=== PATIENT | female | born 1960 | race Caucasian/White ===

== ENCOUNTER 2019-02-28 17:13 | Inpatient (IN) | payer MEDICAID ==
[~2019-02-28] VITALS: Ht 170.1 cm; Wt 124.7 kg
[2019-02-28] MEDS ORDERED: LISINOPRIL5 MG PO (17:35)
[2019-02-28] MEDS ORDERED: ATORVASTATIN CA80 M1 PO (17:35)
[2019-02-28] MEDS ORDERED: OMEPRAZOLE MAGN20 MG PO (17:36)
[2019-02-28] MEDS ORDERED: SENNA8.6 MG PO (17:42)
[2019-02-28] MEDS ORDERED: TYLENOL325 M2 PO (17:44)
[2019-02-28] MEDS ORDERED: MIRALAX17 GM PO (17:45)
[2019-02-28] MEDS ORDERED: MELATONIN3 M3 PO (17:45)
[2019-02-28] MEDS ORDERED: TUSSIN COU15 MG/5 ML PO (17:48)
[2019-02-28] MEDS ORDERED: CYCLOBENZAPRINE10 MG PO (17:51)
[2019-02-28] MEDS ORDERED: EC NAPROSYN500 MG PO (17:53)
--- NOTE | 2019-02-28 18:24 | NUR ---
SPOKE WITH CHRISTINE AT [facility]. PT IS ENROUTE TO FACILITY AT THIS TIME. LAURA FRIEDMAN NOTIFIED OF PT TO BE PINK SLIP FOR ADMISSION.
[2019-02-28 19:47] VITALS: BP 136/78
--- NOTE | 2019-02-28 19:47 | NUR ---
A 58, admitted PINKSLIPPED to 3N, under the services of DL DEJESUS with a diagnosis of SCHIZOAFFECTIVE DISORDER. Chief complaint is INCREASED AGITATION, THREATENING STAFF DR AT FACILITY. Patient arrived via stretcher from [facility]. Initial assessment completed. Vital signs taken and recorded. DL DEJESUS notified of admission to the unit. Orders received. See assessment for past medical history, medications and allergies. Patient oriented to unit. [facility]. visitation policy reviewed. Clothing/patient valuable form completed. ZOEY MORENO
[2019-02-28 21:02] VITALS: BP 136/78
--- NOTE | 2019-02-28 22:26 | NUR ---
HOSPITALIST NUMBER CALLED [phone], SPOKE TO , UPDATED ON NEW ADMISSION AND MED REC BEING COMPLETE AND READY FOR REVIEW. STATED TO PLACE CONSULT UNDER , NO OTHER ORDERS RECIEVED.
--- NOTE | 2019-02-28 22:37 | NUR ---
ON UNIT TO SEE PATIENT AT THIS TIME.
--- NOTE | 2019-02-28 23:36 | NUR ---
PT COMPLIANT WITH ADMISSION PROCESS. PT FOI WITH BIZARRE STATEMENTS DURING QUESTIONING. PT ALSO PREOCCUPIED WITH "BLACK PEOPLE" SINCE ADMISSION, MAKING MULTIPLE STATEMENTS IN REGARDS TO BLACK PEOPLE HURTING HER OR RAPING HER IN THE PAST. PT ALERT AND ORIENTED X4 WITH CONFUSION, CALM. MOOD ANXIOUS. PT DENIES SI/HI AT THIS TIME BUT STATED SHE DID WANT TO HURT THE "MALDIVIAN DOCTOR" AT HER FACILITY BECAUSE SHE WAS QUESTIONING WHETHER OR NOT SHE WAS COMPETENT AND "SNAPPED LIKE A PENCIL" WITH ANGER. PT CONTRACTED FOR SAFETY. NO AGITATION OR AGGRESSION NOTED. PT ALSO DENIES HALLUCINATIONS AT THIS TIME BUT STATES THAT WHEN SHE IS ALONE SOMETIMES PEOPLE TALK TO HER. NO NOTED RESPONDING TO INTERNAL STIMULI. SKIN ASSESSMENT COMPLETED, NO OPEN AREAS OBSERVED, SKIN INTACT. PT MOBILIZES SELF IN WHEELCHAIR, STANDBY ASSIST. FALL PRECAUTIONS INITIATED AND MAINTAINED. PT CONTINENT OF BOWEL AND BLADDER, ABLE TO MAKE NEEDS KNOWN. PT RECEIVED PRN ATIVAN 1MG REQUESTED FOR ANXIETY AND "NEEDING TO CALM DOWN" AT 2331. NO OTHER PHYSICAL COMPLAINTS NOTED. PT CURRENTLY LAYING DOWN WITH EYES CLOSED, RESPIRATIONS EASY AND REGULAR ON ROOM AIR, NO SIGNS OR SYMPTOMS OF DISTRESS NOTED. PLAN IS TO CONTINUE TO MONITOR MOOD AND BEHAVIORS. PROVIDE 1:1 FOR VENTILATION OF FEELINGS WITH EMOTIONAL SUPPORT. ENCOURAGE MEDICATION COMPLIANCE AND EDUCATE. MAINTAIN Q 15 MIN CHECKS.
--- NOTE | 2019-03-01 05:46 | NUR ---
PATIENT OBSERVED ON Q 15 MIN CHECKS TO HAVE SLEPT APPROX 6 HOURS WITH NO AWAKENINGS OR SIGNS AND SYMPTOMS OF DISTRESS NOTED. PRN ATIVAN 1MG GIVEN AT 2331 EFFECTIVE.
[2019-03-01 06:41] LABS: BASO % 0.3 % (0.0-1.0); EOS # 0.2 10*3/uL (0.0-0.4); EOS % 1.6 % (1.0-4.0); HEMATOCRIT 44.8 % (37.0-47.0); HEMOGLOBIN 14.3 g/dl (12.0-16.0); LYMPH # 2.8 10*3/uL (1.3-4.4); LYMPH % 25.4 % (27.0-41.0); MEAN CORPUSCULAR HGB 31.3 pg (27.0-31.0); MEAN CORPUSCULAR HGB CONC 31.9 g/dl (33.0-37.0); MEAN PLATELET VOLUME 9.6 fl (9.6-12.3); MONO # 0.5 10*3/uL (0.1-1.0); MONO % 4.9 % (3.0-9.0); NEUT # 7.4 10*3/uL (2.3-7.9); NEUT % 67.3 % (47.0-73.0); PLATELET COUNT AUTOMATED 275 10*3/uL (130-400); RED BLOOD COUNT 4.57 10*6/uL (4.10-5.10); RED CELL DISTRI WIDTH 12.1 % (0-14.5)
[2019-03-01 06:52] LABS: ALBUMIN 3.3 gm/dl (3.1-4.5); ALKALINE PHOSPHATASE 78 U/L (45-117); BUN 11 mg/dl (7-24); CHLORIDE 109 mmol/L (98-107); CHOLESTEROL 97 mg/dL (<200); CREATININE 0.62 mg/dL (0.55-1.02); HDL CHOLESTEROL 38 mg/dl (40-60); LDL CHOLESTEROL 27 mg/dL (9-159); POTASSIUM 3.6 mmol/L (3.5-5.1); SGOT/AST 15 IU/L (3-35); SGPT/ALT 20 U/L (12-78); SODIUM 142 mmol/L (136-145); TOTAL PROTEIN 6.9 gm/dL (6.4-8.2); TRIGLYCERIDES 159 mg/dl (<150); VLDL CHOLESTEROL 32 mg/dL (6-40)
[2019-03-01 08:18] LABS: VITAMIN D, 25-HYDROXY 6.5 ng/mL (30-100)
[2019-03-01 08:58] VITALS: BP 118/82
--- NOTE | 2019-03-01 10:43 | NUR ---
DR. GARG ON UNIT TO ASSESS PATIENT, NOTIFIED OF ABNORMAL LABS. LUNG CLEAR, NO COUGHING, NON LABORED ON ROOM AIR.
--- NOTE | 2019-03-01 12:05 | NUR ---
AM/ART/MUSIC PT ATTENDED AND PARTICIPATED IN ALL GROUP ACTIVITY'S. PT PLEASANT AND ON TASK SITTING AT A TABLE WITH NURSING STUDENTS. PT DID NOT EXPRESS ANY AGITATION. AGGRESSION. OR HALLUCINATIONS AT THIS TIME. PT WILL CONTINUE TO ATTEND AND PARTICIPATE TO BEST OF ABILITY IN FUTURE GROUP SESSIONS.
--- NOTE | 2019-03-01 12:12 | NUR ---
psychosocial hx completed this date
--- NOTE | 2019-03-01 16:07 | NUR ---
PM/LEISURE SKILLS/MUSIC PT SLEEPING WHEN ENCOURAGED OT ATTEND PT CHOSE CHOSE TO REMAIN IN BED SLEEPING AT THIS TIME AND WILL BE ENCOURAGED TO ATTEND AN DPARTICIPATE IN FUTURE GROUP SESSIONS TO BEST OF ABILITY.
--- NOTE | 2019-03-01 18:23 | NUR ---
PATIENT IS ALERT AND ORIENT TO PERSON, PLACE, TIME AND SITUATION; ABLE TO VOICE NEEDS. MOOD IS STABLE, CALM DEMEANOR. PATIENT CAN BE ISOLATIVE AT TIMES. PATIENT RECIEVED B12 1000MCG IM IN RIGHT DELTOID. DENIES ANY HALLUCINATIONS, DELUSIONS, HI/SI OR PAIN. MEDICATION COMPLAINT WITH EDUCATION. QQ 15 MINUTE SAFETY CHECKS. 1 PERSON ASSIST WITH ACTIVITIES OF DAILY LIVING, CONTINENT OF BOWEL AND BLADDER. SET UP FOR MEALS. INTAKES ARE GOOD WITH ADEQUATE FLUIDS. SELF PROPELS ON UNIT SHORT DISTANCES. CONTINUE TO MONITOR FOR VERBAL AGGRESSION. PROVIDE ONE ON ONE AND REDIRECTION NEEDED.
[2019-03-01 19:54] VITALS: BP 114/62
[2019-03-01 23:47] LABS: BILIRUBIN 1+ (NEGATIVE); BLOOD 2+ (NEGATIVE); CLARITY CLEAR (CLEAR); COLOR YELLOW (YELLOW); GLUCOSE NEGATIVE (NEGATIVE); KETONE NEGATIVE (NEGATIVE); LEUKO ESTERASE 2+ (NEGATIVE); NITRITE NEGATIVE (NEGATIVE); PH 5.5 (5.0-9.0); SPECIFIC GRAVITY 1.025 (1.005-1.030); UROBILINOGEN 0.2 E.U./dl (0.2-1.0)
[2019-03-02 00:30] LABS: RBC 16-20 rbc/hpf (0-2); WBC 16-20 wbc/hpf (0-5)
[2019-03-02 00:31] LABS: BACTERIA 1+; EPITHELIAL CELLS 20-25
--- NOTE | 2019-03-02 00:52 | NUR ---
NO ADVERSE BEHAVIORS NOTED. PT ALERT AND ORIENTED X4. MOOD MILDLY DEPRESSED. PT CALM, COOPERATIVE, ISOLATIVE TO ROOM AND BED SINCE BEGINNING OF SHIFT. PT REFUSED HS SNACK. DURING 1:1 PATIENT STATED SHE WAS DOING OKAY, JUST FEELING TIRED. DENIES SI/HI AND HALLUCINATIONS, NO NOTED RESPONDING TO INTERNAL STIMULI. NO PARANOIA/DELUSIONS OBSERVED. PT REQUESTED TYLENOL AT 0035 FOR C/O OF A HEADACHE WITH A RATING OF 10/10 DUE TO HER ROOMMATE KEEPING HER AWAKE, PT RECEIVED TYLENOL 650MG PO ORDERED AT THAT TIME. NO OTHER PHYSICAL COMPLAINTS NOTED. PT LAYING DOWN WITH EYES CLOSED, RESPIRATIONS EASY AND REGULAR, NO SIGNS OR SYMPTOMS OF DISTRESS NOTED. PLAN IS TO CONTINUE TO MONITOR MOOD AND BEHAVIORS. PROVIDE 1:1 WITH EMOTIONAL SUPPORT NEEDED. ENCOURAGE MEDICATION COMPLIANCE AND EDUCATE. MAINTAIN Q 15 MIN CHECKS.
--- NOTE | 2019-03-02 01:51 | NUR ---
24 HOUR CHART CHECK COMPLETED.
--- NOTE | 2019-03-02 02:25 | NUR ---
PT RESTING QUIETLY. NO FURTHER C/O PAIN NOTED. PRN TYLENOL GIVEN AT 0035 EFFECTIVE.
--- NOTE | 2019-03-02 05:18 | NUR ---
PATIENT OBSERVED ON Q 15 MIN CHECKS TO HAVE SLEPT APPROX 6 HOURS WITH BRIEF AWAKENINGS THROUGHOUT THE NIGHT. NO SIGNS OR SYMPTOMS OF DISTRESS NOTED.
--- NOTE | 2019-03-02 06:47 | NUR ---
RESIDENT NUMBER CALLED [phone], SPOKE TO , UPDATED ON PATIENTS RECENT UA RESULTS. NO NEW ORDERS RECEIVED.
[2019-03-02 07:59] VITALS: BP 119/72
--- NOTE | 2019-03-02 09:45 | NUR ---
DR. GARG ON UNIT TO ASSESS PATIENT.
--- NOTE | 2019-03-02 12:16 | NUR ---
AM GROUP PT ATTENDED AND PARTICIPATED IN SECOND PART OF GROUP. PT PLEASANT AND ON TASK WITH NO AGITATION/AGGRESSION OR HALLUCINATIONS EXPRESSED AT THIS TIME. PT WILL CONTINUE TO ATTEND AND PARTICIPATE IN FUTURE GROUP SESSIONS.
--- NOTE | 2019-03-02 13:03 | NUR ---
PATIENT IS ALERT TO PERSON, PLACE, TIME AND SITUATION;ABLE TO VOICE NEEDS. MOOD IS DEPRESSED. DENIES ANY HALLUCINATIONS, DELUSIONS, HI/SI OR PAIN. PATIENT CONCERNED WITH 30 DAY CUT NOTICE, STATES SHE WANTS TO GO BACK TO [place]. 1 PERSON ASSIST WITH ENCOURAGEMENT TO CARE FOR OWN SELF NEEDS. VERBAL CUEING WITH ACTIVITIES OF DAILY LIVING, CONTINENT OF BOWEL AND BLADDER. SET UP FOR MEALS, INTAKES ARE GOOD WITH ADEQUATE FLUIDS. MEDICATION COMPLAINT WITH EDUCATION PROVIDED. Q 15 MINUTE SAFETY CHECKS MAINTAINED. CONTINUE TO MONITOR FOR VERBAL AGGRESSION, PROVIDE ONE ON ONE AND REDIRECTION NEEDED.
--- NOTE | 2019-03-02 15:04 | NUR ---
Shift chart check completed.
[2019-03-02 20:00] VITALS: BP 119/57
--- NOTE | 2019-03-02 21:21 | NUR ---
24 HR chart check completed.
--- NOTE | 2019-03-02 22:27 | NUR ---
P-DEPRESSED, ISOLATIVE I-PROVIDE VERBAL INTERVENTION FOR SUPPORT & VENTILATION OF FEELINGS. ADMINISTER MEDS, MONITOR SLEEP R-PT IS ALERT & ORIENTED X 4. MOOD IS DEPRESSED & ISOLATIVE TO HER ROOM. PT DID STATE THAT SHE IS FEELING BETTER. LIMITED VERBALLY & DID STATE THAT SHE WANTS TO MOVE BACK TO [place] & BE WITH HER SISTER THAT IS HER ONLY FAMILY LEFT. REFUSED HS SNACK. COMPLIANT TAKING MEDICATIONS. P-CONTINUE TO MONITOR & PROVIDE PHYSICAL ASSISTANCE & EMOTIONAL SUPPORT NEEDED.
--- NOTE | 2019-03-03 04:37 | NUR ---
PT HAS SLEPT PAST 2044 WITH 1 AWAKENING FOR 1 HOUR WHEE SHE RESTED QUIETLY IN BED.
[2019-03-03 07:56] VITALS: BP 118/60
--- NOTE | 2019-03-03 08:00 | NUR ---
Treatment Plan meeting with Dr. Ruiz, RN, AT, and Foundation Director. Plan for discharge at the end of the week, beginning of next week. Pt. came to [facility] from [facility]. Will reach out to facility today to discuss discharge Planning.
--- NOTE | 2019-03-03 08:06 | NUR ---
Patient resting quietly with no c/o discomfort. Respirations easy and regular. Vital signs stable. No overt distress. Pt reports interrupted sleep last night, refusing breakfast at this time. CHU MUNOZ
--- NOTE | 2019-03-03 08:19 | NUR ---
Nursing screen received and Occupational Therapy referral received. Thank you. Moira Gillespie OTR/l
--- NOTE | 2019-03-03 08:57 | NUR ---
PHYSICAL THERAPY Nursing screen received and chart reviewed. Physical therapy referral received. Thank you. Francesca Pritchett,PT,DPT.
--- NOTE | 2019-03-03 11:36 | NUR ---
AM GROUP/EXERCISE AND PARACHUTE PT ATTENDED MORNING GROUP THERAPY AND PARTICIPATED IN ALL ACTIVITIES. PT EXHIBITED NO AGITATION OR AGGRESSION WHILE IN GROUP.
--- NOTE | 2019-03-03 13:30 | NUR ---
Left Voice Message for Cinder Pit Crane Operator at [facility].
--- NOTE | 2019-03-03 13:30 | NUR ---
PHYSICAL THERAPY Physical therapy evaluation attemtped. Patient reports, " I gotta get out of here by the or 16 to get my stuff." Patient refusing PT evaluation at this time. Will try again at a later date. Thank you. Francesca Pritchett,PT,DPT
--- NOTE | 2019-03-03 13:30 | NUR ---
Occupational Therapy evaluation offered to patient who was in bed. Patient was pleasant but c/o needing to leave the hospital inorder to move out of [facility] by 03/04 or 03/05 to move to [place] with her sister.She reports that she has to be out of [facility] for 30 days. She declined the evaluation this date. OTR spoke with Tricia Daniels; caser shoe parts, who reported that patient would not be returning to [facility] and that her sister did live in [place]. Patient has been delusion recently. OTR will attempt evaluation at a later date. Moira Gillespie OTR/Ashley
--- NOTE | 2019-03-03 14:22 | NUR ---
PT ISOLATIVE THIS SHIFT. PT ENCOURAGED TO PARTICIPATE IN GROUP THERAPY FOR SOCIALIZATION AND SUPPORT. REDIRECTED. PROVIDED MEDICATION PER ORDERS. PT PARTICIPATED IN GROUP THERAPY, BUT DID NOT PARTICIPATE IN PHYSICAL OR OCCUPATIONAL THERAPY. PT IS MEDICATION COMPLIANT WITHOUT DIFFICULTY. PT ONLY REFUSED MIRALAX D/T PT STATING SHE HAD TWO LARGE BM'S TODAY AND DID NOT NEED IT. MEDICATION EDUCATION PROVIDED. WILL CONTINUE TO ENCOURAGE PT TO PARTICIPATE IN ALL THERAPIES. WILL ENCOURAGE PT TO INTERACT WITH STAFF AND PEERS FOR SOCIALIZATION AND SUPPORT. WILL CONTINUE TO PROVIDE MEDICATIONS PER ORDERS. Q15 MIN MONITORING PER POLICY.
--- NOTE | 2019-03-03 15:02 | NUR ---
Attempted to phone pt's sister Ivan with pt. Asaelel did not answer and voicemail was unavailable. Per pt, pt is to take a bus to go to [place] to live with Ivan.
--- NOTE | 2019-03-03 16:38 | NUR ---
PM GROUP/LEISURE SKILLS PT ATTENDED AND PARTICIPATED FOR HALF OF GROUP DUE TO RESTING IN BED THE FIRST PART. PT PLEASANT AND ON TASDK WITH NO AGGRESSION OR AGIATATION EXHIBITED. PT DID NOT EXPRESS ANY HALLUCINATIONS AT THIS TIME AND WILL CONTINUE TO ATTEND AND PARTICIPATE IN FUTURE GROUP SESSIONS.
--- NOTE | 2019-03-03 19:38 | NUR ---
24 HR chart check completed.
[2019-03-03 19:58] VITALS: BP 127/68
--- NOTE | 2019-03-03 20:49 | NUR ---
EVENING GROUP PT ATTENDED AND PARTICIPATED AT THIS TIME. PT PLEASANT AND ON TASK WITH NO AGITATION OR AGGRESSION EXPRESSED. PT DID NOT EXPRESS ANY HALLUCINATIONS AT THIS TIME EITHER. PT WILL CONTINUE TO ATTEND AMND PARTICIPATE IN FUTURE GROUP SESSIONS.
--- NOTE | 2019-03-03 21:18 | NUR ---
P-LESS DEPRESSED I-PROVIDE VERBAL INTERVENTION FOR SUPPORT & VENTILATION OF FEELINGS. ADMINISTER MEDS, MONITOR SLEEP R-PT IS ALERT & ORIENTED X 4. MOOD IS LESS DEPRESSED. STATED THAT SHE IS FEELING BETTER. SHE WAS MORE SOCIAL THIS EVENING. PARTICIPATED IN RECREATIONAL ACTIVITIES & SOCIALIZED WITH PEERS APPROPRIATELY. ATE SNACK. CONTINUES TO VOICE PLANS TO RETURN TO [place] WITH HER SISTER. COMPLIANT TAKING MEDICATIONS. DID REQUEST & WAS MEDICATED WITH 2 TYLENOL FOR C/O H/A. RATED PAIN "11/10". PT SMILING WHEN INFORMING RN OF THIS P-CONTINUE TO MONITOR & PROVIDE PHYSICAL ASSISTANCE & EMOTIONAL SUPPORT NEEDED.
--- NOTE | 2019-03-04 05:09 | NUR ---
PT HAS SLEPT PAST 2144
[2019-03-04 07:43] VITALS: BP 113/70
--- NOTE | 2019-03-04 08:00 | NUR ---
Treatment Plan meeting with Dr. Ruiz, RN, AT, SW and Vocational Rehabilitation Specialist. Plan for discharge Next week. Dr. Ruiz has requested Anayeli White for Competency.
--- NOTE | 2019-03-04 09:59 | NUR ---
DR. RODRÍGUEZ NOTIFIED OF COMPETENCY CONSULT.
--- NOTE | 2019-03-04 10:31 | NUR ---
PT TALKATIVE THIS AM, SPEECH IS GARBLED AT TIMES ESPECIALLY WHEN UPSET OR TRYING TO CONVEY THOUGHTS RAPIDLY. PT STATED THAT SHE GOT SO ANGRY AT HOME BECAUSE THEY WANT HER TO BE STUPID AND SHE ISN'T SHE CAN DO IT ALL HERSELF. PT STATED " I JUST WANT TO KILL HER FOR SAYING I WASNT ABLE TO TAKE CARE OF MYSELF" PT REDIRECTED AND THEN TALKED WITH HER ABOUT HOW SHE COULD OF HANDLED IT DIFFERENTLY. WILL CONTINUE TO TALK WITH PT ABOUT COPING SKILLS AT THIS TIME. SHE HAS BEEN PLEASANT AND LAUGHING WITH PEERS. NO SI NOTED. PT STATED THAT SHE WAS ANGRY AND WOULDN'T OF TRIED TO KILL THE DOCTOR BUT WAS JUST SO MAD, CONTINUE WITH 15 MIN CHECKS
--- NOTE | 2019-03-04 10:46 | NUR ---
Met individually with pt this AM. Pt was pleasant as she spoke about her plans to move to [place], [place] to reside with her sister Ivan Corado. When asked, pt explained about her plans to take the bus to [place]. Pt has already purchased the ticket and is supposed to board the bus on 03/06/19 at the bus stop in [facility]. Pt explained that she has [address] to [place] Pt explained what she would do at each stop. Pt was not hesitant when speaking of traveling to [place]. With pt present, this video games storywriter phoned pt's sister Ivan who confirmed that pt is to move in with her. Ivan stated that she has no concerns in regards to pt traveling alone to [place]. After phone conversation, pt asked about her belongings at the assisted living. Informed pt that this video games storywriter would be calling the AL today to discuss this. Await competency evaluation to assist in determining discharge options.
--- NOTE | 2019-03-04 11:37 | NUR ---
AM GROUP/LIGHT AND MUSIC THERAPY PT CHOSE NOT TO ATTEND MORNING GROUP THERAPY STATING, "I DON'T FEEL GOOD TODAY. I THINK I GOT A COLD"
--- NOTE | 2019-03-04 12:47 | NUR ---
Patient not available for Occupational Therapy as she in group session. Harika reports that patient uses w/c in the hallway but ambulates in her room and is able to perform own toileting. OTR will attempt evaluation at a later date. Moira Gillespie OTR/Ashley
--- NOTE | 2019-03-04 14:48 | NUR ---
PHYSICAL THERAPY Physical therapy evaluation attempted however Pt in group activities. Will attempt at a later time. Thank you Janet faust, PT, DPT
--- NOTE | 2019-03-04 15:50 | NUR ---
PM GROUP/ART AND MUSIC PT ATTENDED AFTERNOON GROUP THERAPY AND PARTICIPATED BY DRAWING AND LISTENING TO MUSIC. PT EXHIBITED NO AGITATION OR AGGRESSION WHILE IN GROUP. PT WAS ON TASK AND IS VERY CURTIOUS TOWARDS OTHERS.
--- NOTE | 2019-03-04 19:35 | NUR ---
24 HR chart check completed.
[2019-03-04 19:46] VITALS: BP 115/70
--- NOTE | 2019-03-04 21:20 | NUR ---
P-DEPRESSED, ISOLATIVE TO ROOM I-PROVIDE VERBAL INTERVENTION FOR SUPPORT & VENTILATION OF FEELINGS. ADMINISTER MEDS, MONITOR SLEEP R-PT IS ALERT & ORIENTED X 3. MOOD IS DEPRESSED. CONTINUES TO STATE THAT SHE IS FEELING BETTER. ISOLATIVE TO HER ROOM THIS EVENING. REFUSED SNACK. CONTINUES TO VOICE PLANS TO RETURN TO [place] WITH HER SISTER. COMPLIANT TAKING MEDICATIONS. P-CONTINUE TO MONITOR & PROVIDE PHYSICAL ASSISTANCE & EMOTIONAL SUPPORT NEEDED.
--- NOTE | 2019-03-05 04:34 | NUR ---
PT HAS SLEPT PAST 2029
[2019-03-05 07:39] VITALS: BP 126/62
--- NOTE | 2019-03-05 08:00 | NUR ---
Treatment Plan meeting with Dr. Ruiz, RN, AT, SW and Manager Of Data. Plan for discharge Next week.
--- NOTE | 2019-03-05 11:40 | NUR ---
PHYSICAL THERAPY Physical therapy evaluation completed, 3N. Full details and evaluation to follow. Moderate complexity determined after chart review and evaluation, 56774. PT to work on strength, endurance, gait, balance, safety. Recommending returning to retirement at prior level. thank you Janet Zapata, PT,DPT
--- NOTE | 2019-03-05 11:40 | NUR ---
Occupational Therapy evaluation completed on 3 with full eval to follow. Precautions include 3N unit precautions, w/c and ww use, min assist LB self care plof,low complexity level 21446. Recommend return to LTC at [facility]. No further OT indicated at this time. Thank you. Moira Gillespie OTR/l
--- NOTE | 2019-03-05 11:42 | NUR ---
AM GROUP PT ENTERED GROUP WITH ONLY 30 MINUTES LEFT BUT DID PARTICIPATE. PT EXHIBITED NO AGITATION OR AGGRESSION WHILE IN GROUP
--- NOTE | 2019-03-05 12:10 | NUR ---
Extensive time spent this AM on pt's discharge plan. Phoned [place] bus service, pt's [employer] health and social care teacher Phuong Flores, Mar Cross at the [facility] office, and pt's sister Ivan Corado who resides in [place], [place]. Attempted to problem solve with each named above in order to get pt to her sister's home in [place], [place]. Also began researching flights for pt from [employer] to [place]. [facility] Jenelle Brumfield and explain that they must allow patient to return there. This tech writer then received a call from the credit control administrator and DON of [place] Brumfield MD. They would like pt to discharge today back to the AL so that they can assist pt in getting ready for her bus trip to [place]. Informed Dr Ruiz of this and he is agreeable to the discharge.
--- NOTE | 2019-03-05 12:17 | NUR ---
PT PLEASANT COOPERATIVE WITH OT/PT TODAY ECNOURAGED TO AMBULATE WITH WALKER. PT ENJOYS USING WHEEL CHAIR BUT IS ABLE TO AMBULATE WHEN SHE FEELS THE NEED FOR SHORT DISTANCES. PT HAS NO SI/HI OR DELUSIONS NOTED. SPEECH CONTINUES TO BE GARBLED AT TIMES AND RAMBLED IN PATTERN. MEDICATION COMPLIANT, GOOD SLEEP PATTERN LAST NIGHT. PT HAS BEEN CONTINENT OF BOWEL AND BLADDER. PARTICIPATING IN GROUP THERAPY.
--- NOTE | 2019-03-05 12:28 | NUR ---
DR. RAHMAN NOTIFIED OF PATIENT BEING DISCHARGE. TO INFORM DR CAAL OF TODAY'S DISCHARGE.
[2019-03-05] MEDS ORDERED: INVEGA9 MG PO (12:51)
[2019-03-05] MEDS ORDERED: B121000 MCG/1 IM (13:05)
[2019-03-05] MEDS ORDERED: VITAMIN D50000 UNIT PO (13:06)
--- NOTE | 2019-03-05 14:47 | NUR ---
PATIENT IS ALERT AND ORIENT TO PERSON, PLACE, TIME AND SITUATION; ABLE TO VOICE NEEDS. DENIES ANY HALLUCINATIONS, DELUSIONS, HI/SI OR PAIN. PATIENT WILL BE DISCHARGED TODAY. ALL INSTRUCTIONS REVIEWED AND ALL PAPERWORK SIGNED. PATIENT READY FOR DISCHARGE. ALL BELONGING GATHERED.
--- NOTE | 2019-03-05 15:34 | NUR ---
PM GROUP PT ATTENDED AFTERNOON GROUP FOR A SHORT TIME BUT HAD TO GET READY FOR DISCHARGE THIS AFTERNOON.
--- NOTE | 2019-03-05 15:35 | NUR ---
Transportation arranged with [facility] to transport with strip picker time 4:00 p.m.
--- NOTE | 2019-03-05 15:44 | NUR ---
Met with pt this afternoon and informed her that she would be discharging to [facility] in order to prepare for her move to [place]. Encouraged pt to be pleasant and cooperative at AL until she leaves for the bus. Pt voiced understanding.
--- NOTE | 2019-03-05 15:46 | NUR ---
Patient is discharging today returning to [facility]. Patient will remain at the [place] for one day until she boards a bus to [facility] where she plans on living with her sister Ivan Corado. Pt will establish with mental health services in the [place] area. This aligner typewriter spoke with pt's sister Ivan who confirmed that she will assist pt with this.
--- NOTE | 2019-03-05 16:39 | NUR ---
[facility] CALLED, LEFT MESSAGE ON ANSWERING MACHINE DUE TO NO ANSWER TO CALL BACK FOR NURSE TO NURSE REPORT.
--- NOTE | 2019-03-05 16:45 | NUR ---
PT OFF UNIT WITH ALL BELONGINGS AT THIS TIME. PT TRANSFERED TO STRETCHER FROM BED AT THIS TIME VIA 4 STAFF. ALL PAPERWORK AND PERSONAL ITEMS SENT WITH PT.
--- NOTE | 2019-03-05 18:26 | NUR ---
NURSE TO NURSE REPORT GIVEN TO EPHRAIM AT [facility].
--- NOTE | 2019-03-07 16:29 | NUR ---
PHYSICAL THERAPY CO-SIGN I approve of the Physical Therapy notes written above. VIOLET FREGOSO, PT, DPT
== END 2019-03-05 16:45 | disposition home or self-care (01) | DRG 750 ==
LOC: 3N 17:13
PROVIDERS: ADMIT Psychiatry & Neurology Psychiatry
DX: F25.9 Schizoaffective disorder, unspecified (principal); F23 Brief psychotic disorder; F81.9 Developmental disorder of scholastic skills, unspecified; C71.9 Malignant neoplasm of brain, unspecified; I25.10 Atherosclerotic heart disease of native coronary artery without angina pectoris; J44.9 Chronic obstructive pulmonary disease, unspecified; I10 Essential (primary) hypertension; E78.5 Hyperlipidemia, unspecified; Z88.6 Allergy status to analgesic agent; Z86.73 Personal history of transient ischemic attack (TIA), and cerebral infarction without residual deficits; Z79.899 Other long term (current) drug therapy